=== PATIENT | female | born 1945 ===

== ENCOUNTER 2020-08-03 04:35 | Day surgery (SDC) | payer OTHER ==
[2020-08-01 13:59] VITALS: BMI 24.2
[2020-08-03] MEDS ORDERED: DEXAMETHASONE SOD PHOSPHATE 10 MG/1 ML VIAL ONE (07:51)
[2020-08-03] MEDS ORDERED: LIDOCAINE HCL 1%, 10 MG/ML (50 mL VIAL) INF ONE (14:07)
[2020-08-03] MEDS ORDERED: IOHEXOL 180 MG/1 ML ML IJ ONE (14:07)
[2020-08-03] MEDS ORDERED: DEXAMETHASONE SOD PHOSPHATE 10 MG/1 ML VIAL IVPUSH ONE (14:10)
[2020-08-03 15:10] VITALS: BP 128/80; PULSE 68; TEMP 98.4
== END 2020-08-03 15:10 | disposition home or self-care (01) ==
LOC: JASU-SURG 04:35
PROVIDERS: ATTEND Pain Medicine Pain Medicine
PROC: 3E0R33Z Introduction of Anti-inflammatory into Spinal Canal, Percutaneous Approach (ICD-10-PCS; 2020-08-03)
PROC: B01BYZZ Fluoroscopy of Spinal Cord using Other Contrast (ICD-10-PCS; 2020-08-03)
PROC: 3E0R3BZ Introduction of Anesthetic Agent into Spinal Canal, Percutaneous Approach (ICD-10-PCS; principal; 2020-08-03 13:55)
DX: M54.16 Radiculopathy, lumbar region (principal); M48.061 Spinal stenosis, lumbar region without neurogenic claudication
CPT/HCPCS: 76000-TC-FY; J1100

== ENCOUNTER 2020-08-24 05:01 | Day surgery (SDC) | payer OTHER ==
[2020-08-22 16:44] VITALS: BMI 24.2
[2020-08-24] MEDS ORDERED: LIDOCAINE HCL/PF 1% SDV 5ML VIAL ONE (07:20)
[2020-08-24] MEDS ORDERED: BUPIVACAINE HCL/PF 0.75% 10 ML VIAL ONE (07:20)
[2020-08-24] MEDS ORDERED: LIDOCAINE HCL 1% PRESERVATIVE FREE - 30ML VIAL IJ ONE (10:15)
[2020-08-24] MEDS ORDERED: IOHEXOL 180 MG/1 ML ML IJ ONE (10:15)
[2020-08-24] MEDS ORDERED: BUPIVACAINE HCL/PF 0.75% 10 ML VIAL MM ONE (10:16)
[2020-08-24 10:49] VITALS: BP 135/77; PULSE 80; TEMP 97.4
== END 2020-08-24 11:10 | disposition home or self-care (01) ==
LOC: JASU-SURG 05:01
PROVIDERS: ATTEND Pain Medicine Pain Medicine
PROC: BR16YZZ Fluoroscopy of Lumbar Facet Joint(s) using Other Contrast (ICD-10-PCS; 2020-08-24)
PROC: 3E0T3BZ Introduction of Anesthetic Agent into Peripheral Nerves and Plexi, Percutaneous Approach (ICD-10-PCS; principal; 2020-08-24 09:15)
DX: M47.816 Spondylosis without myelopathy or radiculopathy, lumbar region (principal)
CPT/HCPCS: 76000-TC-FY

== ENCOUNTER 2020-10-19 04:20 | Day surgery (SDC) | payer OTHER ==
[2020-10-17 10:58] VITALS: BMI 24.2
[2020-10-19] MEDS ORDERED: LIDOCAINE HCL/PF 1% SDV 5ML VIAL ONE (07:30)
[2020-10-19] MEDS ORDERED: DEXAMETHASONE SOD PHOSPHATE 10 MG/1 ML VIAL ONE (07:30)
[2020-10-19] MEDS ORDERED: LIDOCAINE HCL 1% PRESERVATIVE FREE - 30ML VIAL IJ ONE (10:26)
[2020-10-19] MEDS ORDERED: IOHEXOL 180 MG/1 ML ML IJ ONE (10:27)
[2020-10-19] MEDS ORDERED: DEXAMETHASONE SOD PHOSPHATE 10 MG/1 ML VIAL IM ONE (10:27)
[2020-10-19 10:53] VITALS: BP 159/82; PULSE 67
[2020-10-19 10:58] VITALS: TEMP 98.1
== END 2020-10-19 11:00 | disposition home or self-care (01) ==
LOC: JASU-SURG 04:20
PROVIDERS: ATTEND Pain Medicine Pain Medicine
PROC: 3E0R33Z Introduction of Anti-inflammatory into Spinal Canal, Percutaneous Approach (ICD-10-PCS; 2020-10-19)
PROC: B01BYZZ Fluoroscopy of Spinal Cord using Other Contrast (ICD-10-PCS; 2020-10-19)
PROC: 3E0R3BZ Introduction of Anesthetic Agent into Spinal Canal, Percutaneous Approach (ICD-10-PCS; principal; 2020-10-19 10:00)
DX: M54.16 Radiculopathy, lumbar region (principal); M48.061 Spinal stenosis, lumbar region without neurogenic claudication
CPT/HCPCS: 76000-TC-FY; J1100